=== PATIENT | female | born 2000 | race Caucasian/White ===

== ENCOUNTER 2022-08-28 09:21 | Outpatient (CLI) | payer OTHER, SELFPAY ==
[2022-08-28 13:27] LABS: Basophils Absolute Auto 0.02 K/uL (0.00-0.30); Basophils Percent Auto 0.3 % (0.0-3.0); Eosinophils Absolute Auto 0.13 K/uL (0.00-0.50); Eosinophils Percent Auto 2.1 % (0.0-7.0); Hematocrit 36.4 % (33.0-51.0); Hemoglobin* 11.4 gm/dL (12.0-16.0); Immature Granulocytes Abs Auto 0.01 K/uL (0.00-0.30); Immature Granulocytes Pct Auto 0.2 %; Lymphocytes Absolute Auto 2.26 K/uL (0.90-2.90); Lymphocytes Percent Auto 36.6 % (20-44); Mean Corpuscular HGB Conc 31 gm/dL (32-36); Mean Corpuscular Hemoglobin 27 pg (26-34); Mean Corpuscular Volume 87 fL (80-100); Neutrophils Absolute Auto 3.45 K/uL (1.7-7.0); Neutrophils Percent Auto 55.8 % (42.0-72.0); Platelet Count* 284 K/uL (140-440); RDW Coefficient of Variation % 14.4 % (11.5-15.5); Red Blood Count 4.21 m/uL (4.00-5.20); White Blood Count* 6.18 K/uL (4.50-11.00)
[2022-08-28 13:36] LABS: Slide Review Reflex No
[2022-08-28 14:07] LABS: Albumin* 3.7 g/dL (3.3-5.0); Chloride* 110 mmol/L (96-114); Sodium* 140 mmol/L (135-149)
[2022-08-28 14:08] LABS: Potassium* 4.2 mmol/L (3.6-5.1)
[2022-08-28 14:10] LABS: Alanine Aminotransferase* 22 U/L (4-35); Alkaline Phosphatase* 87 U/L (40-150); Aspartate Amino Transferase* 22 U/L (12-35); Bilirubin Total* 0.3 mg/dL (0.1-1.5); Blood Urea Nitrogen* 12 mg/dL (5-24); Carbon Dioxide* 24 mmol/L (20-32); Creatinine* 0.7 mg/dL (0.5-1.5); Estimated Glomerular Filt Rate 124 ml/min; Glucose* 114 mg/dL (60-115); Total Protein* 6.3 g/dL (6.0-8.3)
[2022-08-28 14:11] LABS: Calcium* 8.5 mg/dL (8.4-10.6)
[2022-08-28 14:18] LABS: Thyroid Stimulating Hormone* 0.618 uIU/mL (0.270-4.20)
[2022-08-28 14:22] LABS: Ferritin* 15.5 ng/mL (6.24-137.0)
== END 2022-08-28 09:22 | disposition home or self-care (01) ==
PROVIDERS: PCP Family Medicine; Visit Provider Family Medicine
DX: E03.9 Hypothyroidism, unspecified (principal); D50.9 Iron deficiency anemia, unspecified; R42 Dizziness and giddiness; F32.9 Major depressive disorder, single episode, unspecified; F41.9 Anxiety disorder, unspecified
CPT/HCPCS: 80053; 82728; 84443; 85025

== ENCOUNTER 2023-09-22 16:26 | Outpatient (CLI) | payer OTHER, SELFPAY | END 2023-09-22 16:27 | disposition home or self-care (01) | PROVIDERS: PCP Family Medicine; Visit Provider Obstetrics & Gynecology | DX: Z11.3 Encounter for screening for infections with a predominantly sexual mode of transmission (principal) | CPT/HCPCS: 87491; 87591 ==

== ENCOUNTER 2023-10-08 08:47 | Outpatient (CLI) | payer OTHER, SELFPAY | END 2023-10-08 08:48 | disposition home or self-care (01) | PROVIDERS: PCP Family Medicine; Visit Provider Family Medicine | DX: E03.9 Hypothyroidism, unspecified (principal); R53.83 Other fatigue; E55.9 Vitamin D deficiency, unspecified | CPT/HCPCS: 80048; 80061; 82306; 83498; 83525; 84146; 84270; 84402; 84403; 84443; 85025 ==

== ENCOUNTER 2024-11-07 12:08 | Outpatient (CLI) | payer OTHER, SELFPAY | END 2024-11-07 12:09 | disposition home or self-care (01) | PROVIDERS: PCP Family Medicine; Visit Provider Family Medicine | DX: E03.9 Hypothyroidism, unspecified (principal); E55.9 Vitamin D deficiency, unspecified; D50.9 Iron deficiency anemia, unspecified; N93.9 Abnormal uterine and vaginal bleeding, unspecified; R53.83 Other fatigue | CPT/HCPCS: 80048; 82306; 82728; 84443; 85025 ==

== ENCOUNTER 2025-04-11 08:55 | Outpatient (CLI) | payer OTHER, SELFPAY | END 2025-04-11 08:56 | disposition home or self-care (01) | PROVIDERS: PCP Family Medicine; Visit Provider Physician Assistant | DX: D50.9 Iron deficiency anemia, unspecified (principal); E03.9 Hypothyroidism, unspecified | CPT/HCPCS: 82728; 84439; 84443 ==

== ENCOUNTER 2025-05-09 08:00 | Outpatient (CLI) | payer OTHER, SELFPAY ==
--- NOTE | 2025-05-09 08:15 | CRLHL7_ITS ---
For Patients: As a result of the Century Cures Act, medical imaging exams and procedure reports are released immediately into your electronic medical record. You may view this report before your referring provider. If you have questions, please contact your health care provider. OB ULTRASOUND LESS THAN 14 WEEKS CLINICAL HISTORY: Dating and viability. TECHNIQUE: Grayscale and color Doppler ultrasound of the uterus and ovaries from a transabdominal and transvaginal approach. Transvaginal ultrasound of the pelvis was performed to better evaluate the genitourinary organs such as the ovaries and/or endometrium. FINDINGS: Imaging: TV. LMP: 03/09/2025. FABRICIO by LMP: 12/14/2025. GA: 8 weeks 5 days. FABRICIO by US: 12/18/2025. GA: 8 weeks 1 day. CRL: 1.8 cm, 8 weeks 1 day. FABRICIO 12/18/2025. FHR: 171 bpm. GEST SAC: 3.7 cm, appears WNL. YOLK SAC: 2.9 mm, appears WNL. RIGHT OV: 3.6 x 1.8 x 2.9 cm. LEFT OV: 5.6 x 2.8 x 4.0 cm. CL. IMPRESSION: 1. Single living intrauterine measures 8 weeks 1 day with sonographic due date of 12/18/2025. 2. Subchorionic hemorrhage is present which measures 2.6 x 0.4 x 1.8 cm. 3. Incidental corpus luteal cyst left ovary. Sarabjit Mix M.D. [facility] [employer] [email or web address] Transcribed: 10:25 am DW/Dictated by: Sarabjit Mix MD @ 05/09/2025 9:59:00 AM (Electronically Signed)
== END 2025-05-09 08:01 | disposition home or self-care (01) ==
LOC: US 08:02
PROVIDERS: PCP Family Medicine; Visit Provider Physician Assistant
DX: O20.9 Hemorrhage in early pregnancy, unspecified (principal); O34.81 Maternal care for other abnormalities of pelvic organs, first trimester; N83.12 Corpus luteum cyst of left ovary; Z3A.08 8 weeks gestation of pregnancy
CPT/HCPCS: 76817

== ENCOUNTER 2025-05-09 09:10 | Outpatient (CLI) | payer OTHER, SELFPAY ==
[2025-05-09 15:28] LABS: Chlamydia DNA Amplified* NOT DETECTED (No Detected); GC DNA Amplified* NOT DETECTED (No Detected)
== END 2025-05-09 09:11 | disposition home or self-care (01) ==
PROVIDERS: PCP Family Medicine; Visit Provider Physician Assistant
DX: Z34.91 Encounter for supervision of normal pregnancy, unspecified, first trimester (principal); E03.9 Hypothyroidism, unspecified
CPT/HCPCS: 83020; 83021; 84443; 85660; 86592; 86703; 86704; 86706; 86762; 86787; 86803; 86850; 86900; 86901; 87086; 87340; 87491; 87591

== ENCOUNTER 2025-05-25 19:58 | Emergency (ER) | payer OTHER, SELFPAY ==
[2025-05-25 20:06] VITALS: BP 149/78; PULSE 79; RESP 18; TEMP 36.6; O2SAT 99; BMI 33.6
--- NOTE | 2025-05-25 20:10 | ED.GENADULT ---
HPI - General Adult General Date Seen: 05/25/25 Chief complaint: Head Injury/Pain Stated complaint: possible concussion Time Seen by Provider: 05/25/25 20:09 History of Present Illness HPI narrative: 25-year-old female with a history of anemia, depression, bipolar, PTSD, hypothyroidism, anxiety Related Data Home Medications ?Medication ?Instructions ?Recorded ?Confirmed ferrous sulfate 325 mg (65 mg 325 mg PO QDAY 12/05/22 05/09/25 iron) tablet (FeroSul) cholecalciferol (vitamin D3) 1,250 1,250 mcg PO 10/14/24 05/09/25 mcg (50,000 unit) capsule YIH-[id number]-omega 3 fatty no.1 27 cap PO 04/11/25 05/09/25 mg-1 mg-300 mg capsule Previous Rx's ?Medication ?Instructions ?Recorded ondansetron 8 mg disintegrating 8 mg PO TID PRN nausea and 10/08/23 tablet vomiting #30 tabs lamotrigine 150 mg tablet 150 mg PO BID #180 tabs 11/07/24 levothyroxine 112 mcg tablet 112 mcg PO DAILY #30 tabs 04/14/25 Held on 04/18/25. Instructions: Home Medication placed on hold at Doctor's office quetiapine 100 mg tablet 100 mg PO QDAY #30 tabs 04/14/25 quetiapine 25 mg tablet 25 mg PO QDAY #30 tabs 04/14/25 levothyroxine 137 mcg tablet 137 mcg PO QDAY #60 tabs 04/18/25 Held on 05/09/25. Instructions: Home Medication placed on hold at Doctor's office Allergies Allergy/AdvReac Type Severity Reaction Status Date / Time No Known Drug Allergies Allergy Verified 05/09/25 09:02 [facility] Medical History Vitamin D deficiency ?E55.9 - Vitamin D deficiency, unspecified (ICD-10) Chronic constipation ?K59.09 - Other constipation (ICD-10) Hypothyroidism ?E03.9 - Hypothyroidism, unspecified (ICD-10) Posttraumatic stress disorder ?F43.10 - Post-traumatic stress disorder, unspecified (ICD-10) Passive suicidal ideations ?R45.851 - Suicidal ideations (ICD-10) Nodulocystic acne ?L70.0 - Acne vulgaris (ICD-10) Major depressive disorder ?F32.9 - Major depressive disorder, single episode, unspecified (ICD-10) Iron deficiency anemia ?D50.9 - Iron deficiency anemia, unspecified (ICD-10) Gastroesophageal reflux disease ?K21.9 - Gastro-esophageal reflux disease without esophagitis (ICD-10) Bipolar II disorder ?F31.81 - Bipolar II disorder (ICD-10) Anxiety ?F41.9 - Anxiety disorder, unspecified (ICD-10) Surgical History History of third molar tooth extraction ?K08.409 - Partial loss of teeth, unspecified cause, unspecified class (ICD-10) Social History Narrative: 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 Marital status: Significant other. Restoration/cultural needs: no. Chemical or radiation exposure: no. Pre- tobacco use: no. Pre- alcohol use: Occasional. Current tobacco use: no. Current alcohol use: no. Recreational drug use: no. Dietary restrictions: no. Blood transfusion acceptable in an emergency: yes. PSYCHOSOCIAL HISTORY: History of depression or currently depressed: yes. Current physical, emotional, or sexual mistreatment: Denies. Problems that will make it hard to make it to appointments: Denies. What is your current living situation?: I presently have a place to live Problems where you live: no known problems In the past 12 months, utilities in danger of being shut off: no In past 12 months, lack of transportation kept you from medical appts, meetings, work, or getting things needed for daily living: no In the past 12 mos, have been you worried that your food would run out before you had money to buy more?: never true In the past 12 mos, the food you bought just didn't last and you didn't have money to buy more?: never true Smoking Status: Never smoker Second hand tobacco smoke exposure: No How often do you have a drink containing alcohol: never AUDIT-C Alcohol total score: 0 Non-prescribed substance use: denies use How often does anyone, including family, friends and others, physically hurt you: never How often does anyone, including family, friends and others, insult or talk down to you: never How often does anyone, including family, friends and others, threaten you with harm: never How often does anyone, including family, friends and others, scream or curse at you: never Exam Const: Vital Signs, click to edit/add: Vital Signs - 24 hr 05/25/25 20:06 Temperature 97.9 F Pulse Rate [Pulse Oximeter] 79 Respiratory Rate 18 Blood Pressure [Ri ght Upper Arm] 149/78 H Pulse Oximetry 99 Oxygen Delivery Me thod Room Air Course Vital Signs Vital signs: Initial Vital Signs Temperature 97.9 F 05/25/25 20:06 Temperature Source Temporal Artery Scan 05/25/25 20:06 Pulse Rate 79 05/25/25 20:06 Respiratory Rate 18 05/25/25 20:06 Blood Pressure 149/78 H 05/25/25 20:06 Blood Pressure Mean 101 05/25/25 20:06 Blood Pressure Position Sitting 05/25/25 20:06 Pulse Oximetry 99 05/25/25 20:06 Oxygen Delivery Method Room Air 05/25/25 20:06 Vital Signs Temperature 97.9 F 05/25/25 20:06 Pulse Rate 79 05/25/25 20:06 Respiratory Rate 18 05/25/25 20:06 Blood Pressure 149/78 H 05/25/25 20:06 Pulse Oximetry 99 05/25/25 20:06 Oxygen Delivery Method Room Air 05/25/25 20:06 Temperature 97.9 F 05/25/25 20:06 Pulse Rate 79 05/25/25 20:06 Respiratory Rate 18 05/25/25 20:06 Blood Pressure 149/78 H 05/25/25 20:06 Pulse Oximetry 99 05/25/25 20:06 Oxygen Delivery Method Room Air 05/25/25 20:06 Discharge Plan Discharge Prescriptions: No Action ondansetron 8 mg tablet,disintegrating 8 mg PO TID PRN (Reason: nausea and vomiting) Qty: 30 1RF Rx Instructions: Used for chronic nausea, not acute lamotrigine 150 mg tablet 150 mg PO BID Qty: 180 3RF TYG-gklb-SM-omega 3 fatty no.1 27-1-300 mg capsule PO ferrous sulfate [FeroSul] 325 mg (65 mg iron) tablet 325 mg PO QDAY cholecalciferol (vitamin D3) 1,250 mcg (50,000 unit) capsule 1,250 mcg PO levothyroxine 112 mcg tablet 112 mcg PO DAILY Qty: 30 2RF quetiapine 25 mg tablet 25 mg PO QDAY Qty: 30 2RF quetiapine 100 mg tablet 100 mg PO QDAY Qty: 30 2RF Rx Instructions: Total daily dose 125 mg levothyroxine 137 mcg tablet 137 mcg PO QDAY Qty: 60 0RF Follow Up/Referrals: Sarabjit Herrera MD [Primary Care Provider, Family Practice]
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
[2025-05-25] MEDS: METOCLOPRAMIDE HCL 5 MG/ML INJ 10 MG IVP (20:49)
[2025-05-25] MEDS: LACTATED RINGERS 1000 ML 1,000 ML IV (20:50)
[2025-05-25 20:55] VITALS: O2SAT 99
[2025-05-25 22:07] VITALS: BP 135/84; PULSE 84; RESP 18; TEMP 36.8; O2SAT 99
== END 2025-05-25 22:08 | disposition home or self-care (01) ==
PROVIDERS: Emergency Provider Student in an Organized Health Care Education/Training Program; PCP Family Medicine
DX: R51.9 Headache, unspecified (principal); W22.8XXA Striking against or struck by other objects, initial encounter; Z3A.11 11 weeks gestation of pregnancy
CPT/HCPCS: 94761; 96374; 96375; 99284; J1200; J2765; J7120

== ENCOUNTER 2025-07-05 10:07 | Outpatient (CLI) | payer MEDICAID, SELFPAY | END 2025-07-05 10:08 | disposition home or self-care (01) | LOC: NFLDREF 07-11 16:39 | PROVIDERS: PCP Family Medicine; Referring Provider Family Medicine; Visit Provider Obstetrics & Gynecology | DX: E03.9 Hypothyroidism, unspecified (principal) | CPT/HCPCS: 84443 ==